=== PATIENT | female | born 1975 | race Caucasian/White ===

== ENCOUNTER → 2018-02-27 | Day surgery (SDC) | payer OTHER ==
[~2018-02-27] VITALS: Ht 162.6 cm; Wt 133.8 kg
[~2018-02-27] MED LIST: ABILIFY 2MG2 MG PO; ADDERALL XR 3030 MG PO; ARIPIPRAZOLE5 M1 PO; BIOTIN2500 MCG PO; BUPROPION HCL75 MG PO; BUPROPION XL150 MG PO; BUPROPION XL300 M1 PO; FLOMAX0.4 M1 PO; IBUPROFEN800 M1 PO; LAMICTAL200 MG PO; LAMOTRIGINE150 M1 PO; PERCOCET 5-3251 EACH PO; SEROQUEL XR150 MG PO; TYLENOL #31 TAB PO; VITAB121000 PO; VITAMIN B-121000 MC3 PO; VITAMIN D2000 UNIT PO; ZOFRAN ODT4 M1 SL
--- NOTE | 2018-02-28 06:23 | Operative Report ---
Operative/Inv Procedure Report Surgery Date: 02/27/18 Name of Procedure: Cystoscopy, L ureteroscopy, laser lithotripsy, basket extraction of stone fragments, insertion of L ureteral stent Pre-Operative Diagnosis: L proximal ureteral calculus Post-Operative Diagnosis: same Estimated Blood Loss: scant Surgeon/Safety Attendant: Reji Johnson MD Anesthesia: laryngeal mask airway Drains: 24 cm, 6 fr L double J ureteral stent with long suture Specimens: urine C&S Complications: none Condition: stable Operative Indication: L proximal ureteral stone with pain Operative/Procedure Note Note: The patient was taken to the OR and identified. She was placed in the supine position on the OR table. A time out was executed appropriately with the patient awake. General anesthesia was induced via an LMA. She was placed in the dorsal lithotomy position and prepped and draped in the usual manner for cystoscopy. A surgical pause was executed appropriately. A fluoroscopy image was taken with a marker on the L side of the abdomen to confirm the correct side of the surgery as well as the correct orientation of the fluoroscopy image. The 22 fr cystoscope was placed into the bladder and urine collected for culture. The bladder was normal. The L ureteral orifice was identified and a guidewire placed in the L ureter and advanced up to the L kidney beyond the stone, which was visible on fluoroscopy. A double lumen dilating catheter was placed over the wire and a 2nd wire placed. A ureteral access sheath was placed over the 2nd wire. The flexible ureteroscope was placed through the sheath and advanced up to the stone. The 273 micro holmium laser fiber was placed thru the ureteroscope and the stone fragmented. Using a zero tip basket the stone fragments were removed. The ureteroscope and ureteral sheath were then removed. The cystoscopy was back loaded on the wire and, after placing some contrast in the collecting system, under visual and fluoroscopic control and 24 cm, 6 fr L double J stent was placed. Fluoroscopy confirmed the proximal end of the stent coiled in the L renal pelvis and the distal end coiled in the bladder. A long suture was left attached to the distal end of the stent. The patient tolerated the procedure well Findings: 7 mm L proximal ureteral stone Discharge Disposition: PACU
--- NOTE | 2018-02-28 15:41 | RADIOLOGY REPORT ---
EXAMINATION: CR ABDOMEN/INTRAOPERATIVE FLUOROSCOPY CLINICAL INDICATION: Left ureteroscopy, lithotripsy, retrograde, and stent insertion in OR. COMPARISON: CT scan of the abdomen and pelvis dated 02/25/2018. TECHNIQUE/FINDINGS: Fluoroscopic equipment was dedicated to the operating room for the performance of an intraoperative procedure. Several (16) spot films were acquired and are archived in PACS. Please refer to operative notes for procedural detail. FLUOROSCOPY TIME: 46 seconds. IMPRESSION: Administrative dictation for intraoperative fluoroscopy and image archiving in PACS. Please refer to operative notes for details.
== END ==
LOC: STS 02:30
DX: N20.1 Calculus of ureter (principal); Z87.442 Personal history of urinary calculi; K21.9 Gastro-esophageal reflux disease without esophagitis; G47.33 Obstructive sleep apnea (adult) (pediatric); E66.01 Morbid (severe) obesity due to excess calories; Z68.43 Body mass index [BMI] 50.0-59.9, adult; F17.200 Nicotine dependence, unspecified, uncomplicated
CPT/HCPCS: 74018; 81025; 87086; C2617; J0131; J2250; J2405